=== PATIENT | female | born 1985 | race Caucasian/White ===

== ENCOUNTER 2023-11-15 17:08 | Emergency (ER) | payer BC ==
[~2023-11-15] VITALS: Ht 154.9 cm; Wt 42.2 kg
[2023-11-15] MEDS ORDERED: ONDANSETRON HCL/PF 4 MG/2 ML VIAL ONE ×2 (17:40→18:49)
[2023-11-15] MEDS: ONDANSETRON HCL/PF 4 MG/2 ML VIAL IVP ONE ×2 (17:41→18:52)
[2023-11-15] MEDS: IV NS 0.9% 1,000 ML BAG IV ONE (17:41)
[2023-11-15 17:47] LABS: BASOPHILS % (AUTO) 0.4 % (0.0-2.0); EOSINOPHILS % (AUTO) 0.1 % (0.0-6.0); HEMATOCRIT 43 % (33-45); HEMOGLOBIN 14.3 g/dL (11.5-14.8); LYMPHOCYTES # (AUTO) 0.9 K/uL (0.8-4.8); LYMPHOCYTES % (AUTO) 7.5 % (20.0-44.0); MEAN CORPUSCULAR HEMOGLOBIN 29 PG (26.0-33.0); MEAN CORPUSCULAR HGB CONC 33 g/dl (31.0-36.0); MEAN CORPUSCULAR VOLUME 86 fL (82-100); MONOCYTES # (AUTO) 0.3 K/uL (0.1-1.30); MONOCYTES % (AUTO) 2.8 % (2.0-12.0); NEUTROPHILS # (AUTO) 10.7 K/uL (1.8-8.9); NEUTROPHILS % (AUTO) 89.2 % (43.0-81.0); PLATELET COUNT (AUTO) 287 K/uL (150-450); RED BLOOD CELL COUNT(AUTO) 5.02 MIL/uL (4.0-5.2); RED CELL DISTRIBUTION WIDTH 13.7 % (11.5-15.0)
[2023-11-15] MEDS ORDERED: clonazePAM 0.5 MG TABLET ONE (17:52)
[2023-11-15 17:54] LABS: CALCIUM, SERUM 10.4 mg/dL (8.5-10.1); CREATININE 0.8 mg/dL (0.6-1.3); POTASSIUM 3.8 mmol/L (3.5-5.1)
[2023-11-15] MEDS: CLONAZEPAM ODT/TDIS 0.5 MG TAB.RAPDIS SL ONE (17:54)
[2023-11-15 18:05] LABS: BILIRUBIN,DIRECT 0.2 mg/dL (0.0-0.2); BILIRUBIN,TOTAL 0.9 mg/dL (0.2-1.0); TOTAL PROTEIN, SERUM 8.3 g/dL (6.4-8.2)
[2023-11-15] MEDS ORDERED: ONDA4TAB5 PO (19:16)
[2023-11-15 19:25] LABS: APPEARANCE,URINE SLIGHTLY CLOUDY (CLEAR); BILIRUBIN,URINE 1+ (NEGATIVE); BLOOD, URINE NEGATIVE Ery/uL (NEGATIVE); COLOR,URINE YELLOW (YELLOW); KETONES,URINE 3+ mg/dL (NEGATIVE); LEUKOCYTE ESTERASE ,URINE NEGATIVE (NEGATIVE); NITRITE, URINE NEGATIVE (NEGATIVE); PROTEIN,URINE 1+ mg/dl (NEGATIVE); UGLUCOSE NEGATIVE (NEGATIVE); UROBILINOGEN,URINE 0.2 EU/dL (0.2)
[2023-11-15 19:41] LABS: ADD URINE CULTURE NO; BACTERIA,URINE 1+ /HPF (None Seen); RBC,URINE 0-2 /HPF (0-2); SQUAMOUS EPITHELIAL CELL,UR Few /HPF (None Seen); WBC,URINE 0-2 /HPF (0-3)
[2023-11-15 19:42] LABS: PREGNANCY TEST URINE QUAL NEGATIVE (NEGATIVE); URINE AMORPHOUS PHOSPHATES Moderate /HPF (None Seen)
[2023-11-15] MEDS: diphenhydrAMINE HCL 50 MG/ML VIAL IV ONE (21:00)
[2023-11-15] MEDS: METOCLOPRAMIDE HCL 10 MG/2 ML VIAL IV ONE (21:00)
[2023-11-15] MEDS ORDERED: diphenhydrAMINE HCL 50 MG/ML VIAL ONE (21:07)
[2023-11-15] MEDS ORDERED: METOCLOPRAMIDE HCL 10 MG/2 ML VIAL ONE (21:08)
[2023-11-15 22:16] VITALS: TEMP 97.2
[2023-11-15 22:17] VITALS: BP 125/70; O2SAT 100
== END 2023-11-15 22:00 | disposition home or self-care (01) ==
LOC: ER 17:14
DX: R11.2 Nausea with vomiting, unspecified (principal); F41.9 Anxiety disorder, unspecified; F32.A Depression, unspecified; Z85.038 Personal history of other malignant neoplasm of large intestine; Z88.0 Allergy status to penicillin
CPT/HCPCS: 99284; 96374; 96375; 96361; 96376; 85025; 80048; 83690; 80076; 84703; 81001; 36415; J1200; J2765; J2405 ×2; J7030